=== PATIENT | male | born 1985 | race Caucasian/White ===

== ENCOUNTER 2017-03-05 10:47 | Day surgery (SDC) | payer OTHER ==
[~2017-03-05] VITALS: Ht 172.7 cm; Wt 77.8 kg
[~2017-03-05 10:47] MED LIST: ALAVERT10 M1 PO; PROVENTIL0.09 MG/A1 IH; RT ADVAIR 228 DISKUS IH; SINGULAIR 110 MG/TAB PO
[2017-03-05 11:36] VITALS: BP 119/71; PULSE 75; TEMP 97.8
[2017-03-05 15:00] VITALS: BP 100/48; PULSE 66; TEMP 98.2
[2017-03-05 15:15] VITALS: BP 105/68; PULSE 93
[2017-03-05] MEDS ORDERED: ROXICODONE 55 MG/TAB PO (15:27)
[2017-03-05 15:30] VITALS: BP 127/75; PULSE 81
[2017-03-05 15:45] VITALS: BP 134/71; PULSE 91
== END 2017-03-05 16:15 | disposition home or self-care (01) ==
LOC: SDCO 10:47
DX: K80.10 Calculus of gallbladder with chronic cholecystitis without obstruction (principal); J45.909 Unspecified asthma, uncomplicated; F17.210 Nicotine dependence, cigarettes, uncomplicated
CPT/HCPCS: OP; J0690; J1100; J1885; J2270; J2405; J2704; J3010; J7120

== ENCOUNTER 2017-08-16 12:10 | Emergency (ER) | payer OTHER ==
[~2017-08-16] VITALS: Ht 172.7 cm; Wt 77.3 kg
[~2017-08-16 12:10] MED LIST changes: +ROXICODONE 55 MG/TAB PO
[2017-08-16 12:15] VITALS: BP 131/65
[2017-08-16 12:59] LABS: HEMATOCRIT 42.8 % (42.0-52.0); HEMOGLOBIN 15.1 g/dl (13.5-18.0); MEAN CELL VOLUME 91 fl (80.0-100.0); MEAN CORPUSCULAR HEMOGLOBIN 32 pg (27.0-31.0); MEAN CORPUSCULAR HGB CONC 35 g/dl (33.0-37.0); MEAN PLATELET VOLUME 8.9 fl (7.4-10.4); PLATELET COUNT 206 K/mm3 (130-400); RED BLOOD COUNT 4.72 M/mm3 (4.20-5.60); REDCELL DISTRIBUTION WIDTH-CV 12.9 % (11.5-14.5)
[2017-08-16 13:10] LABS: ALBUMIN 3.6 gm/dL (3.5-5.0); BILIRUBIN,TOTAL 0.8 mg/dL (0.0-1.0); CALCIUM 8.6 mg/dL (8.4-10.2); CREATININE, serum 0.94 mg/dL (0.66-1.25); POTASSIUM 3.6 mmol/L (3.4-5.0); TOTAL PROTEIN 7.2 gm/dL (6.4-8.2)
[2017-08-16 13:30] LABS: BAND 14 % (0-10); LYMPHOCYTE 5 % (20.0-51.0); NEUTROPHILS 76 % (42.0-75.2); PLATELET ESTIMATE NORMAL (NORMAL)
[2017-08-16 13:31] LABS: ANISOCYTOSIS 1+
[2017-08-16] MEDS ORDERED: MONODOX100 PO (14:01)
[2017-08-16 14:13] VITALS: PULSE 112; TEMP 98.1
== END 2017-08-16 14:14 | disposition home or self-care (01) ==
LOC: COL.ER 12:10
PROVIDERS: Nurse Practitioner Primary Care
DX: J18.1 Lobar pneumonia, unspecified organism (principal); J45.909 Unspecified asthma, uncomplicated; Z90.49 Acquired absence of other specified parts of digestive tract

== ENCOUNTER 2017-12-31 13:20 | Emergency (ER) | payer SELFPAY ==
[~2017-12-31] VITALS: Ht 172.7 cm; Wt 79.5 kg
[~2017-12-31 13:20] MED LIST changes: +MONODOX100 PO
[2017-12-31 13:24] VITALS: BP 128/65; TEMP 98.1
[2017-12-31] MEDS ORDERED: CEPHALEXIN500 M1 PO (16:13)
[2017-12-31 16:47] VITALS: PULSE 90
== END 2017-12-31 16:48 | disposition home or self-care (01) ==
LOC: COL.ER 13:20
DX: S60.420A Blister (nonthermal) of right index finger, initial encounter (principal); S60.422A Blister (nonthermal) of right middle finger, initial encounter; L08.9 Local infection of the skin and subcutaneous tissue, unspecified; L02.511 Cutaneous abscess of right hand; J45.909 Unspecified asthma, uncomplicated

== ENCOUNTER 2021-10-29 20:23 | Emergency (ER) | payer SELFPAY ==
[~2021-10-29] VITALS: Ht 172.7 cm; Wt 81.8 kg
[~2021-10-29 20:23] MED LIST changes: +CEPHALEXIN500 M1 PO
[2021-10-29 20:48] VITALS: TEMP 97.5
[2021-10-29] MEDS ORDERED: VENTOLIN0.09 MG IH (21:47)
[2021-10-29] MEDS ORDERED: PREDNISONE20 MG PO (21:47)
[2021-10-29 22:16] VITALS: BP 125/72; PULSE 97
== END 2021-10-29 22:16 | disposition home or self-care (01) ==
LOC: COL.ER 20:23
DX: J45.901 Unspecified asthma with (acute) exacerbation (principal); Z87.891 Personal history of nicotine dependence; Z28.310 Unvaccinated for COVID-19
CPT/HCPCS: J7512

== ENCOUNTER 2021-12-18 13:43 | Emergency (ER) | payer BC ==
[~2021-12-18] VITALS: Ht 172.7 cm; Wt 81.8 kg
[~2021-12-18 13:43] MED LIST changes: +PREDNISONE20 MG PO; +VENTOLIN0.09 MG IH
[2021-12-18 14:26] VITALS: TEMP 98.2
[2021-12-18] MEDS ORDERED: RT ALBUTER2.5 MG/0.5 IH (15:58)
[2021-12-18] MEDS ORDERED: PREDNISONE20 MG PO (15:58)
[2021-12-18] MEDS ORDERED: SINGULAIR 110 MG/TAB PO (15:58)
[2021-12-18 16:05] VITALS: BP 128/91; PULSE 88
[2021-12-18] MEDS ORDERED: VENTOLIN0.09 MG IH (17:11)
== END 2021-12-18 16:12 | disposition home or self-care (01) ==
LOC: COL.ER 13:43
DX: J45.909 Unspecified asthma, uncomplicated (principal); Z28.310 Unvaccinated for COVID-19; Z87.891 Personal history of nicotine dependence
CPT/HCPCS: J7512